=== PATIENT | female | born 1975 | race Two or more races ===

== ENCOUNTER 2017-04-16 13:13 | Emergency (ER) | payer SELFPAY ==
[~2017-04-16] VITALS: Ht 162.6 cm; Wt 68.0 kg
[2017-04-16 14:10] VITALS: BP 121/79
[2017-04-16] MEDS ORDERED: Ketorolac 60mg Inj IM ONE (14:15)
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
[2017-04-16 15:10] VITALS: BP 122/85
[2017-04-16] MEDS ORDERED: CYCLOBENZAPRINE10 MG ORAL (15:13)
[2017-04-16] MEDS ORDERED: IBUPROFEN600 MG ORAL (15:13)
[2017-04-16] MEDS ORDERED: Norco 5mg/325mg tab ORAL ONE (15:15)
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
[2017-04-16 16:08] VITALS: BP 134/91
== END 2017-04-16 16:09 | disposition home or self-care (01) ==
LOC: EDBD 13:13 → EMR 14:57
DX: M54.5 Low back pain (principal); M54.2 Cervicalgia; M25.552 Pain in left hip; T14.8 Other injury of unspecified body region; V43.52XA Car driver injured in collision with other type car in traffic accident, initial encounter; Y93.9 Activity, unspecified; Y92.410 Unspecified street and highway as the place of occurrence of the external cause
CPT/HCPCS: 72125; 72131; 72192; 81025; 96372; 99284